=== PATIENT | female | born 1980 | race African-American/Black ===

== ENCOUNTER 2020-05-09 09:49 | Outpatient (CLI) | payer BC, SELFPAY ==
--- NOTE | 2020-05-09 09:52 | ECG_ITS ---
Measurements Intervals [place] Rate: 86 P: 48 DE: 161 QRS: 43 QRSD: 96 T: 43 QT: 355 QTc: 426 Interpretive Statements SINUS RHYTHM BORDERLINE R WAVE PROGRESSION, ANTERIOR LEADS BASELINE ARTIFACT- I, II, III, AVR, AVL, AVF BORDERLINE ECG Electronically Signed On 05-09-2020 10:52:36 FLEET ASSISTANT by Riki Jackson D.O.
[2020-05-09 10:59] LABS: Anion Gap 7 mmol/L (8-16); Blood Urea Nitrogen 13 mg/dL (7-17); Carbon Dioxide 29 mmol/L (22-30); Chloride 103 mmol/L (98-107); Estimated Glomerular Filt Rate > 60; Glucose 149 mg/dL (65-105); Potassium 4.1 mmol/L (3.4-5.0); Sodium 139 mmol/L (137-145)
== END 2020-05-09 09:50 | disposition home or self-care (01) ==
PROVIDERS: Anesthesiology; PCP Obstetrics & Gynecology; Visit Provider Surgery
DX: E11.9 Type 2 diabetes mellitus without complications (principal); Z01.818 Encounter for other preprocedural examination; R94.31 Abnormal electrocardiogram [ECG] [EKG]
CPT/HCPCS: 36415; 80048; 93005

== ENCOUNTER 2020-05-14 01:03 | Outpatient (CLI) | payer BC, SELFPAY ==
[2020-05-14 19:31] LABS: SARS-CoV-2 RNA PCR Negative
== END 2020-05-14 01:04 | disposition home or self-care (01) ==
LOC: ANHCOVIDDT 01:03
PROVIDERS: PCP Obstetrics & Gynecology; Visit Provider Surgery
DX: Z01.818 Encounter for other preprocedural examination (principal); Z20.828 Contact with and (suspected) exposure to other viral communicable diseases
CPT/HCPCS: 87635; C9803; U0003

== ENCOUNTER 2020-05-16 00:55 | Day surgery (SDC) | payer BC, SELFPAY ==
[2020-05-06 15:02] VITALS: BMI 35.4
--- NOTE | ~2020-05-16 | XR_ITS ---
EXAMINATION: XR fl guide central line place EXAM DATE: 05/16/2020 14:48 INDICATION: Barb catheter insertion. TECHNIQUE: Fluoroscopy used during XR fl guide central line place performed by Dr. Ramana Walls MD. The DAP for this procedure was 1.3 mGym2. FINDINGS: Single frontal image demonstrates left IJ approach 2 portacatheter insertion, tip overlyin g cavoatrial junction, expected location. Correlate with procedure note. IMPRESSION: Fluoroscopy used during XR fl guide central line place. Reviewed, dictated and finalized at location [facility]. L MILL OPERATOR
--- NOTE | ~2020-05-16 | XR_ITS ---
XR chest port-a-cath/central DATE: 05/16/2020 14:48 INDICATION: Port-A-Cath insertion TECHNIQUE: Portable AP chest on 05/16/2020 at 1448 hours COMPARISON: None FINDINGS: Left Port-A-Cath apparatus is noted with distal catheter tip overlying the superior vena ca va. There is no evidence of pneumothorax. No pulmonary consolidation. No pleural effusion. Normal heart size. No hilar or mediastinal enlargement. IMPRESSION: Left Port-A-Cath catheter placement in superior vena cava; no pneumothorax Reviewed, dictated and finalized at [facility]. Reviewed, dictated and finalized at location [facility]. EL DIPPER IMPRESSION: Left Port-A-Cath catheter placement in superior vena cava; no pneum othorax
--- NOTE | 2020-05-16 08:08 | P.PNAN_ITS ---
Anes - Initial Pre Proc Eval Procedure: Operation Date: 05/16/20 11:30 Proposed Procedures p Insertion Barb Cath - Ramana Walls MD Date/Time: 05/16/20 08:08 Surgeon: Ramana Walls MD Pre Op Diagnosis: ductal CA right breast Patient Data Age: 39 Gender: F Height: 1.75 m Weight: 108.63 kg Allergies Allergy/AdvReac Type Severity Reaction Status Date / Time shellfish derived Allergy Severe Swelling Verified 05/06/20 14:37 of Lip/Tongue/Throat Home Medications Medication Instructions Recorded Confirmed Type albuterol sulfate 90 mcg/actuation 1 inh INHALATION Q4-6H PRN 04/27/20 05/06/20 History breath activated powder inhaler,sensor metformin 1,000 mg tablet 1,000 mg PO BID 04/27/20 05/06/20 History Patient hx anesthesia problems: none Family hx anesthesia problems: none PMFSH Past Medical History Medical History (Updated 05/16/20 @ 08:08 by Dean Kaplan MD) Asthma BMI 33.0-33.9,adult Diabetes Invasive ductal carcinoma of right breast in female Surgical History Surgical History History of Family History Family History Father COPD (chronic obstructive pulmonary disease) Mother Asthma Diabetes mellitus Hypertension Sibling Asthma Grandparent Breast cancer Social History Social History Smoking status: Never smoker Alcohol intake: current Drinks per week: 2 Substance use: never Living arrangements: with family Additional occupation/education comments: [employer] Gender identity (if verbalized by the patient): Female Spiritual care concerns: No Anes - Eval Final PreProcedure Day of Procedure 05/16/20 08:08 Patient weight: obese Heart: regular rate and rhythm Lungs: clear to auscultation and normal air movement Airway: Mallampati scale class II Neurological: alert and oriented Last oral intake: >/= 8 hours ASA classification: III Emergent: no Anesthetic plan: proceed Anesthesia type and monitoring: general LMA Informed Consent: The patient's anesthetic plan and its attendant risks and benefits were discussed with the patient/family/POA. Questions were solicited a nd answers provided to the satisfaction of the patient/family/POA.
[2020-05-16 09:55] LABS: Glucose Point of Care 131 (65-105)
[2020-05-16 10:14] VITALS: BP 137/90; PULSE 91; RESP 14; TEMP 36.8; O2SAT 100
[2020-05-16] MEDS: LACTATED RINGERS 1,000 ML 30 ML IV CONT ×2 (10:23→14:34)
--- NOTE | 2020-05-16 12:46 | WPDHPUPDATE1 ---
History and Physical Update Update Date/Time: 05/16/20 12:46 History and Physical has been reviewed, including an updated exam of the patient. There are NO changes in the patient's condition. Risks, benefits, and alternatives have been discussed and questions answered. Patient agrees to proceed with procedure.
--- NOTE | 2020-05-16 12:49 | WPDHPUPDATE1 ---
History and Physical Update Update Date/Time: 05/16/20 12:49 History and Physical has been reviewed, including an updated exam of the patient. There are changes in the patient's condition. After I saw the patient in the office in the receptors on her core biopsy of the right breast tumor came back. Please revealed a triple negative cancer. Because of this she should have adjuvant chemotherapy preop. Therefore we have agreed to cancel the lumpectomy and sentinel lymph node biopsy for now and instead place a port which can be use for her preoperative chemotherapy. She will be seen the medical oncologist in 2 days. Risks, benefits, and alternatives of placement of a left-sided Port-A-Cath have been described and have been discussed and questions answered. Patient agrees to proceed with procedure .
[2020-05-16] MEDS: LIDO 1%/EPINEPHRINE 1:100,000 50 ML VIAL INFILTRATE (13:36)
[2020-05-16] MEDS: HEPARIN SODIUM 5,000 UNITS/ML VIAL 5000 UNITS IRRIGATION (13:37)
[2020-05-16] MEDS: ceFAZolin SODIUM 1 GM VIAL 2 GM IV PUSH (13:38)
[2020-05-16 14:34] VITALS: BP 122/72; PULSE 102; RESP 14; O2SAT 100
[2020-05-16 14:41] LABS: Glucose Point of Care 124 (65-105)
--- NOTE | 2020-05-16 14:45 | SUR.PHASEII ---
1440 PORTABLE CHEST XRAY TAKEN- DR SCOTT REVIEWED IMAGE.
--- NOTE | 2020-05-16 14:48 | PM.PROC ---
Procedure Note - Detailed Date of procedure: 05/16/20 Pre-op diagnosis: ductal CA right breast triple negative right breast cancer Post-op diagnosis: same Procedure performed: placement of Port-A-Cath Description of procedure: Patient was seen and marked in the pre-op area prior to coming to the OR. Patient was brought to the operating room. I decided to try to place the port on the left since her breast cancer is on the right. She was placed supine on the operating table and general IV sedation was induced. The nurse coater hand provided oxygen and IV sedation. Patient's head was carefully turned to the left side while in the supine position and the patient's entire neck and anterior chest on both sides was prepped and draped in the usual sterile fashion. Following this the appropriate time-out was completed confirming procedure and patient. We confirmed that all the needed equipment was present in the room. Following this the ultrasound probe was draped into the field and using the probe we carefully identified the carotid artery and jugular vein on the right neck. I marked the skin directly over the Rt. internal jugular vein. Following this, using the continuous ultrasound guidance, a Cook needle was placed through the skin into this vein. Patient has somewhat of a thick neck and her head was turned far to the right. I had some trouble keeping the needle in the vein with her sonorous breathing and the guidewire would not pass after trying several times. Therefore I stopped trying at that site. We cleansed the neck turned her head slightly toward me and tried a little bit higher on the neck with a new insertion site after injecting local anesthetic in the area. I did take 1 still image of the ultrasound showing the vascular anatomy of the left neck. After selecting a new site slightly higher than original I again inserted the needle into the jugular vein and was then was able to draw back good dark blood. Once this was completed a guidewire using a J-tip was advanced through the needle and then the needle and the guidewire cover were withdrawn. C-arm fluoroscopy was used to confirm that the guidewire was nicely in the venous system. Once this was confirmed with the C - arm I preceded on by making the pocket for the port on the patient's anterior right chest approximately 3 centimeters below the clavicle overlying the chest wall. Local anesthetic was infiltrated into the skin where there was a transverse incision marked out. Incision was made and we made a pocket inferior to the incision with just a little dissection superior. The low-profile port was tried in the pocket and seemed to fit well. Following this the catheter which had been placed on a tunneling device was tunneled from the port site on the anterior right chest up to the right neck where a small incision had been made with an #11 blade knife. Then the catheter was pulled through so that we would have 18 centimeters to put into the central venous system once the dilation took place. Following this we placed the dilator and sheath over the guidewire in the jugular vein and carefully dilated the tract into the central venous system. The guidewire and dilator were then removed, carefully covering the end of the sheath to prevent air embolus. The end of the catheter which had been cut off straight across and the tip checked was then inserted into the sheath and into the neck. I then carefully pulled the 2 arms of the tear-away sheath away as the plant attendant or assistant operator held the catheter in position with a DeBakey forceps. Following this we checked the position of the catheter with C-arm fluoroscopy confirming that the tip seemed to be in the distal superior vena cava near the junction with the right atrium. I felt that it was in good position and so the rest of the catheter was pulled down toward the feet into the port site. We then measured to the appropriate position to cut the catheter to attach it to t
[2020-05-16 15:00] VITALS: BP 127/91; PULSE 74; RESP 14
[2020-05-16 15:15] VITALS: BP 104/70; PULSE 87; RESP 16
== END 2020-05-16 15:30 | disposition home or self-care (01) ==
PROVIDERS: PCP Obstetrics & Gynecology; Visit Provider Surgery
PROC: (CPT 36561; principal; 2020-05-16 10:30)
DX: C50.911 Malignant neoplasm of unspecified site of right female breast (principal); J45.909 Unspecified asthma, uncomplicated; E11.9 Type 2 diabetes mellitus without complications; Z79.84 Long term (current) use of oral hypoglycemic drugs; E66.9 Obesity, unspecified; Z68.35 Body mass index [BMI] 35.0-35.9, adult
CPT/HCPCS: 36561; 76937; 77001; C1788; J0690; J1644; J2250; J2704; J3010; J7030; J7120

== ENCOUNTER 2020-05-26 08:50 | Outpatient (CLI) | payer BC, SELFPAY ==
--- NOTE | 2020-05-26 | ECHO_ITS ---
Patient Info Name: Sheila Amado Age: 39 years : 1980 Gender: Female Ht: 69 in Wt: 250 lbs BSA: 2.40 m2 HR: 70 bpm BP: 130 / 103 mmHg Technical Quality: Good Exam Date: 05/26/2020 9:44 AM Exam Location: [facility] Patient Status: Outpatient Admit Date: 05/26/2020 Staff Ordering Physician: Diego, Benson Bean MD Privacy Officer: Sylvia Dennison RDCS Attending Provider: Diego, Benson Bean MD Referring Physician: Diego SOLANO; Exam Type: CA echo doppler color flow Study Info Indications c50.411 - breast cancer Complete two-dimensional, color flow and Doppler transthoracic echocardiogram is performed. Strain analysis performed. Summary 1. Complete two-dimensional, color flow and Doppler transthoracic echocardiogram is performed. 2. Left ventricular systolic function is normal, estimated at 60-65%. 3. The left ventricular diastolic function is normal. 4. There is mild mitral valve regurgitation. 5. There is mild tricuspid valve regurgitation. 6. No pulmonary hypertension, estimated pulmonary arterial systolic pressure is 27 mmHg. 7. There is trace pulmonic regurgitation. Left Ventricle Left ventricular chamber dimension is normal. Left ventricular systolic function is normal, estimated at 60-65%. There is no increased left ventricular wall thickness. Left ventricular septal wall motion is normal. The left ventricular diastolic function is normal. Right Ventricle Right ventricular chamber dimension is normal. Right ventricular systolic function is normal. Left Atria Left atrial chamber dimension is normal. Right Atria Right atrial chamber dimension is normal. Atrial Septum Intact interatrial septum visualized by color flow imaging. Aortic Valve The aortic valve is trileaflet. There is no aortic valve sclerosis. There is no aortic valve stenosis. There is no aortic valve regurgitation. Pulmonic Valve The pulmonic valve is not well visualized. There is no pulmonic valve stenosis. There is trace pulmonic regurgitation. Mitral Valve The mitral valve has normal leaflets. There is no mitral valve stenosis. There is mild mitral valve regurgitation. Tricuspid Valve The tricuspid valve leaflets are normal. There is no significant tricuspid valve stenosis. There is mild tricuspid valve regurgitation. No pulmonary hypertension, estimated pulmonary arterial systolic pressure is 27 mmHg. Pericardium/Pleural The pericardium appears normal. There is no pericardial effusion. Inferior Vena Cava Normal inferior vena cava with >50% collapse upon inspiration consistent with normal right atrial pressure, 5 mmHg. Aorta The aortic root size at the sinus of Valsalva is normal. The prox ascending aorta size is normal. Left Ventricular Outflow Tract Name Value Normal LVOT 2D LVOT Diameter 2.1 cm LVOT Doppler LVOT Peak Gradient 4 mmHg LVOT Mean Gradient 3 mmHg LVOT VTI 22 cm LVOT VTI/AV VTI Ratio 0.8 LVOT Stroke Vo
== END 2020-05-26 08:51 | disposition home or self-care (01) ==
LOC: ANHCARD 08:55
PROVIDERS: PCP Obstetrics & Gynecology; Visit Provider Internal Medicine
DX: C50.411 Malignant neoplasm of upper-outer quadrant of right female breast (principal); Z17.0 Estrogen receptor positive status [ER+]
CPT/HCPCS: 93306

== ENCOUNTER → 2020-11-11 00:49 | Outpatient (CLI) | payer BC, SELFPAY ==
[2020-11-12 16:57] LABS: SARS-CoV-2 RNA PCR Negative
== END ==
PROVIDERS: PCP Obstetrics & Gynecology; Visit Provider Surgery
DX: Z01.812 Encounter for preprocedural laboratory examination (principal); Z20.822 Contact with and (suspected) exposure to COVID-19
CPT/HCPCS: C9803; U0003; U0005

== ENCOUNTER 2020-11-11 08:20 | Outpatient (CLI) | payer BC, SELFPAY ==
[2020-11-11 10:19] LABS: Anion Gap 9 mmol/L (8-16); Blood Urea Nitrogen 15 mg/dL (7-17); Calcium 9.4 mg/dL (8.4-10.2); Carbon Dioxide 25 mmol/L (22-30); Chloride 105 mmol/L (98-107); Estimated Glomerular Filt Rate > 60; Glucose 128 mg/dL (65-105); Sodium 139 mmol/L (137-145)
== END 2020-11-11 08:21 | disposition home or self-care (01) ==
LOC: ANHSURGERY 08:23
PROVIDERS: Anesthesiology; PCP Obstetrics & Gynecology; Visit Provider Surgery
DX: E11.9 Type 2 diabetes mellitus without complications (principal); C50.911 Malignant neoplasm of unspecified site of right female breast; Z01.818 Encounter for other preprocedural examination
CPT/HCPCS: 36415; 80048; 86850; 86900; 86901; C9803; U0003; U0005

== ENCOUNTER 2020-11-14 00:40 | Day surgery (SDC) | payer BC, SELFPAY ==
[2020-11-14 09:10] VITALS: BMI 38.5
[2020-11-14] MEDS: LACTATED RINGERS 1,000 ML 30 ML IV CONT (09:49)
[2020-11-14 09:50] VITALS: BP 137/88; PULSE 97; RESP 18; TEMP 36.8; O2SAT 98
--- NOTE | 2020-11-14 09:50 | SUR.PREOP ---
Hayley in nuclear medicine notified that patient is ready
[2020-11-14 10:22] LABS: Glucose Point of Care 131 mg/dl (65-105)
--- NOTE | 2020-11-14 10:47 | P.PNAN_ITS ---
Anes - Initial Pre Proc Eval Procedure: Operation Date: 11/14/20 12:00 Proposed Procedures p Right Simple Mastectomy with [place] Lymph Node Biopsy, with Frozen Section, Possible Right Axillary Dissection - Ramana Walls MD Date/Time: 11/14/20 10:47 Surgeon: Ramana Walls MD Pre Op Diagnosis: Breast Cancer Patient Data Age: 40 Gender: F Height: Weight: 118.3 kg Last Vital Signs Temp 36.8 C 11/14/20 09:50 Pulse 97 11/14/20 09:50 Resp 18 11/14/20 09:50 BP 137/88 11/14/20 09:50 Pulse Ox 98 11/14/20 09:50 Allergies Allergy/AdvReac Type Severity Reaction Status Date / Time shellfish derived Allergy Severe Swelling Verified 11/14/20 09:05 of Lip/Tongue/Throat Home Medications Medication Instructions Recorded Confirmed Type albuterol sulfate 90 mcg/actuation 1 inh INHALATION Q4-6H PRN 04/27/20 11/08/20 History breath activated powder inhaler,sensor metformin 1,000 mg tablet 1,000 mg PO BID 04/27/20 11/08/20 History Laboratory Tests 11/14/20 10:19 POC Capillary Glucose 131 mg/dl H mg/dl (65-105) Patient hx anesthesia problems: none Family hx anesthesia problems: none PMFSH Past Medical History Medical History Asthma BMI 33.0-33.9,adult Diabetes Invasive ductal carcinoma of right breast in female Surgical History Surgical History History of Family History Family History Father COPD (chronic obstructive pulmonary disease) Mother Asthma Diabetes mellitus Hypertension Sibling Asthma Grandparent Breast cancer Maternal grandmother and maternal great-grandmother Social History Social History Smoking status: Never smoker Alcohol intake: former Drinks per week: 2 Substance use: never Living arrangements: with family Additional occupation/education comments: [employer] Gender identity (if verbalized by the patient): Female Spiritual care concerns: No Anes - Eval Final PreProcedure Day of Procedure 11/14/20 10:47 Patient weight: obese Heart: regular rate and rhythm Lungs: clear to auscultation Airway: Mallampati scale class II Neurological: alert and oriented Last oral intake: >/= 8 hours ASA classification: III Emergent: no Anesthetic plan: proceed Anesthesia type and monitoring: general ETT and standard monitoring Informed Consent: The patient's anesthetic plan and its attendant risks and benefits were discussed with the patient/family/POA. Questions were solicited and answers provided to the satisfaction of the patient/family/POA.
--- NOTE | 2020-11-14 11:47 | SUR.PREOP ---
patient has decided to reschedule surgery. message left with Dr. Walls's office. calender runner notified.
== END 2020-11-14 12:50 | disposition home or self-care (01) ==
PROVIDERS: PCP Obstetrics & Gynecology; Visit Provider Surgery
DX: C50.911 Malignant neoplasm of unspecified site of right female breast (principal); Z53.20 Procedure and treatment not carried out because of patient's decision for unspecified reasons; E11.9 Type 2 diabetes mellitus without complications
CPT/HCPCS: 82948; 99213; G0463; J1170; J2250; J3010; J7120

== ENCOUNTER → 2020-11-29 01:03 | Outpatient (CLI) | payer BC, SELFPAY ==
[2020-11-29 17:38] LABS: SARS-CoV-2 RNA PCR Negative
== END ==
PROVIDERS: PCP Obstetrics & Gynecology; Visit Provider Surgery
DX: Z01.812 Encounter for preprocedural laboratory examination (principal); Z20.822 Contact with and (suspected) exposure to COVID-19
CPT/HCPCS: C9803; U0003; U0005

== ENCOUNTER 2020-12-02 01:27 | Day surgery (SDC) | payer BC, SELFPAY ==
[2020-11-30 11:16] VITALS: BMI 37.4
[2020-12-02] VITALS (11 sets, daily range): BP systolic 115–127; BP diastolic 68–86; PULSE 82–98; RESP 14–20; TEMP 36.5–36.7; O2SAT 98–100
--- NOTE | ~2020-12-02 | NM_ITS ---
EXAMINATION: NM sentinel node inject only INDICATION: Right breast cancer TECHNIQUE: 1.069 mCi Tc 99m Lymphoseek were injected in 4 aliquots in the upper outer quadrant of the breast near the areola. No images were obtained. IMPRESSION: 1. Status post right breast sentinel lymph node radiopharmaceutical injection. Reviewed, dictated and finalized at location A.
--- NOTE | ~2020-12-02 | MM_ITS ---
EXAMINATION: MM needle loc RT, MM surgical specimen RT DATE: 12/02/2020 08:45 (accession [id number]), 12/02/2020 11:09 (accession [id number]) INDICATION: Right breast cancer TECHNIQUE: The procedure for a mammography-guided needle localization was discussed with the patient. Risks and benefits were detailed including risks of bleeding and infection. The patient verbalized u nderstanding and agreed to proceed. A time out was performed to verify the patient's name, date of , and site of procedure. The nabor ent was placed in craniocaudal compression, and the skin overlying the right breast was prepared in usual fashion. The skin and subcutaneous soft tissues were infiltrated with 1% lidocaine for local an esthesia. Utilizing mammography guidance, a needle was advanced into the right breast. Two confirmato ry films were obtained. The patient tolerated procedure without immediate complication. A specimen radiograph was performed. FINDINGS: Two view confirmatory films of the right breast demonstrate a needle with tip adjacent to b iopsy marker. The biopsy marker and wire are contained within the surgical specimen. IMPRESSION: 1. Successful mammography-guided right breast needle localization. Reviewed, dictated and finalized at location A. IMPRESSION: 1. Successful mammography-guided right breast needle localization.
--- NOTE | 2020-12-02 08:20 | PM.HPGS ---
History of Present Illness History of Present Illness Consent: Risks, benefits, and alternatives of right sentinel lymph node biopsy with right breast needle localization and lumpectomy possible right axillary dissection have been discussed and questions answered. Patient agrees to proceed with procedure. Chief complaint: right breast CA Narrative: Sheila Amado is a 40 year old female Sheila returns to the office to discuss her upcoming right breast lumpectomy with sentinel lymph node biopsy with frozen section possible right axillary dissection vs Rt. simple mastectomy scheduled for 12/02/2020. Since her last office visit she is doing well. she has been seen a medical oncologist in [place]. She has now completed a course of adjuvant chemotherapy after having a port placed on the left side in the past. She finished her last chemotherapy treatment [address] Cortez. She believes that the previously palpable Rt. breast mass no longer palpable. She has not had the COVID 19 vaccine. Review of Systems Constitutional: Constitutional: Reports no additional constitutional complaints, Reports fatigue and Denies malaise Eyes: Eyes: Denies change in vision and Denies loss of vision ENT: Reports Normal hearing present, Denies change in voice, Denies dizziness, Denies hoarseness and Denies sore throat Cardiovascular: Cardiovascular: Denies chest pain, Denies leg edema and Denies dyspnea Respiratory: Respiratory: Denies cough, Denies dyspnea and Denies wheezing Gastrointestinal: Gastrointestinal: Denies hematochezia, Denies change in bowel habits and Denies heartburn Genitourinary: Genitourinary: Denies urinary frequency and Denies urinary incontinence Integumentary/Breasts: Comments: Recently completed adjuvant chemotherapy for the right breast cancer without too much side effects. Currently denies any specific nausea air loss or other problems. Neurologic: Reports Normal hearing present, Denies confusion, Denies dizziness, Denies loss of vision, Denies memory loss and Denies seizure-like activity Psychiatric: Psychiatric: Denies confusion, Denies depression and Denies memory loss Endocrine: Endocrine: Denies cold intolerance and Reports fatigue Hematologic/Lymphatic: Hematologic/Lymphatic: Denies easy bleeding and Denies easy bruising Allergic/Immunologic: Allergic/Immunologic: Denies wheezing PMFSH Past Medical History Medical History Asthma BMI 33.0-33.9,adult Diabetes Invasive ductal carcinoma of right breast in female Surgical History Surgical History History of Family History Family History Father COPD (chronic obstructive pulmonary disease) Mother Asthma Diabetes mellitus Hypertension Sibling Asthma Grandparent Breast cancer Maternal grandmother and maternal great-grandmother Social History Social History Smoking status: Never smoker Alcohol intake: current Drinks per week: 1 Substance use: never Living arrangements: alone Additional occupation/education comments: [employer] Gender identity (if verbalized by the patient): Female Spiritual care concerns: No Meds Home Medications and Allergies Home Medications Medication Instructions Recorded Confirmed Type albuterol sulfate 90 mcg/actuation 1 inh INHALATION Q4-6H PRN 04/27/20 12/02/20 History breath activated powder inhaler,sensor metformin 1,000 mg tablet 1,000 mg PO BID 04/27/20 12/02/20 History Allergies Allergy/AdvReac Type Severity Reaction Status Date / Time shellfish derived Allergy Severe Swelling Verified 11/14/20 09:05 of Lip/Tongue/Throat Exam Const: General: cooperative, healthy appearing, no acute distress, well developed and al
[2020-12-02] MEDS: LACTATED RINGERS 1,000 ML 30 ML IV CONT ×2 (08:40→11:53)
[2020-12-02 08:48] LABS: Glucose Point of Care 147 mg/dl (65-105)
--- NOTE | 2020-12-02 09:01 | WPDHPUPDATE1 ---
History and Physical Update Update Date/Time: 12/02/20 09:01 History and Physical has been reviewed, including an updated exam of the patient. There are NO changes in the patient's condition. Risks, benefits, and alternatives have been discussed and questions answered. Patient agrees to proceed with procedure.
--- NOTE | 2020-12-02 09:08 | WPDANESEPPF ---
Anes - Initial Pre Proc Eval Procedure: Operation Date: 12/02/20 09:30 Proposed Procedures p Right Breast Lumpectomy with Right Axillary [place] Lymph Node Biopsy and Injection, - Ramana Walls MD s Ultrasound and/or Mammogram Guided Needle Localization Right Breast - Ramana Walls MD Date/Time: 12/02/20 09:08 Surgeon: Ramana Walls MD Pre Op Diagnosis: right breast CA Patient Data Age: 40 Gender: F Height: 1.75 m Weight: 115 kg Allergies Allergy/AdvReac Type Severity Reaction Status Date / Time shellfish derived Allergy Severe Swelling Verified 11/14/20 09:05 of Lip/Tongue/Throat Home Medications Medication Instructions Recorded Confirmed Type albuterol sulfate 90 mcg/actuation 1 inh INHALATION Q4-6H PRN 04/27/20 12/02/20 History breath activated powder inhaler,sensor metformin 1,000 mg tablet 1,000 mg PO BID 04/27/20 12/02/20 History Laboratory Tests 12/02/20 08:46 POC Capillary Glucose 147 mg/dl H mg/dl (65-105) Patient hx anesthesia problems: none Family hx anesthesia problems: none [facility] Past Medical History Medical History Asthma (Unknown) BMI 33.0-33.9,adult Diabetes (Unknown) Invasive ductal carcinoma of right breast in female Surgical History Surgical History History of Family History Family History Father COPD (chronic obstructive pulmonary disease) Mother Asthma Diabetes mellitus Hypertension Sibling Asthma Grandparent Breast cancer Maternal grandmother and maternal great-grandmother Social History Social History Smoking status: Never smoker Alcohol intake: current Drinks per week: 1 Substance use: never Living arrangements: alone Additional occupation/education comments: [employer] Gender identity (if verbalized by the patient): Female Spiritual care concerns: No Anes - Eval Final PreProcedure Day of Procedure 12/02/20 09:08 Patient weight: obese Heart: regular rate and rhythm Lungs: clear to auscultation Airway: Mallampati scale class II Neurological: alert and oriented Last oral intake: >/= 8 hours ASA classification: III Emergent: no Anesthetic plan: proceed Anesthesia type and monitoring: general LMA and standard monitoring Informed Consent: The patient's anesthetic plan and its attendant risks and benefits were discussed with the patient/family/POA. Questions were solicited and answers provided to the satisfaction of the patient/family/POA.
[2020-12-02] MEDS: ceFAZolin 2 GM/D5W 50 ML 2 GM/50 ML BAG IVPB (09:27)
--- NOTE | 2020-12-02 09:41 | SUR.PREOP ---
0900-PT HAS WIG AND WANTS TO LEAVE IT ON TO SURGERY, DR. SCOTT SPOKE WITH PATIENT AND WILL DOUBLE BOUFFANT PT'S HEAD/WIG.
--- NOTE | 2020-12-02 09:48 | SUR.PREOP ---
CORRECTION TO CHARTING-ACTUAL TIME BLOOD GLUCOSE DONE 0845 NOT 0945.
[2020-12-02] MEDS: BUPIVACAINE/EPINEPHRINE 0.25% 10 ML VIAL 30 ML INFILTRATE (10:02)
[2020-12-02] MEDS: ISOSULFAN BLUE 1% INJ 5 ML VIAL SUB-Q (10:16)
--- NOTE | 2020-12-02 12:21 | W.PM.PROC2 ---
Procedure Note - Detailed Date of Procedure 12/02/20 Pre-op Diagnosis right breast CA Post-op Diagnosis same Procedure Performed 1. Grimsley lymph node biopsy times 2 2. Needle localized right breast lumpectomy. 3. Excision of non sentinel lymph node x1 right axilla. 4. Excision of superficial fat right axilla, ( suspected lipoma). Surgeon Ramana Walls MD [employer] [place], OR therapeutic assistant Anesthesia general (via LMA) Indications this patient is a pleasant 40-year-old black female who originally presented to the office with a enlarging mass in the upper central right breast. Core biopsy came back showing triple negative breast cancer. She subsequently underwent neoadjuvant chemotherapy after having a poor placed on the left. Recently she completed her adjuvant chemotherapy and now presents for a lumpectomy with sentinel lymph node biopsy. Findings Right axilla: a superficial apparent lipoma and to hot sentinel lymph nodes that also stained blue with injectable dye while excising the 2nd 1 an obvious separate non sentinel lymph node was identified and excised since it was right next to the hottest sentinel lymph node. Right breast: Unremarkable breast tissue excised as we did the lumpectomy. During the excison I did get down to pectoralis fascia in 1 area deep to the specimen and on the medial side. Description of Procedure The patient was seen preoperatively in the holding area, and I marked the patient on the operative side. She was brought to the operating room and anesthesia delivered. She was prepped and draped in the usual sterile fashion. A timeout was performed confirming patient and site of surgery. An axillary incision was made on the right, and the subcutaneous tissues were dissected with electrocautery, after 1st making incision in the center part of this right axillary incision there appeared to be a approximately 2.5 cm oval shape lipoma which was excised and separately sent for permanent pathology. Then the clavipectoral fascia was incised with electrocautery. Using the Navigator sentinel lymph node probe, the sentinel lymph node was identified and the count in vivo was 929. Then with a ex vivo 10- second count of 7028 was recorded. A second sentinel lymph node was identified with an in vivo count of 11,200. Then with a ex vivo 10- second count of 12,124 was recorded. The count in the axilla after removing this lymph node was between 90 and 140, for background noise. The sentinel lymph nodes were sent fresh for pathologic evaluation. There were also 1 non- sentinel lymph nodes identified visually or by palpation and these were sent for permanant sections in formalin to pathology. The wound was irrigated, hemostased, and closed with 3-0 Vicryl and 4-0 Monocryl. That wound was draped away with a sterile towel and the operative breast was examined. The localizing wire was noted to be entering the breast in the upper central breast. A curvilinear incision was made along the wire and the tissue surrounding the wire was removed widely with electrocautery. The specimen was oriented with a long suture lateral and short suture superior and sent for specimen mammogram. I DID send the breast tissue for fresh tissue exam immediate report requested at pathology. Mammography called back stating that the specimen was adequate with the clip and wire within the specimen and apparent good margins. The pathologist called back and stated that the sentinel lymph nodes showed no signs of cancer cells on touch prep and initial fresh evaluation [ the pathologist called back and stated that fresh exam of the lumpectomy specimen revealed the area of the tumor in the central part of the specimen and the closest margin to tumor would be about 1.5 cm. The Breast wound was irrigated, hemostased, and closed in 2 layers with 3-0 undyed Vicryl and 4-0 Monocryl. Surgical glue was applied to both wounds. All counts were correct at the end of the case.
--- NOTE | 2020-12-02 12:45 | SUR.PHASEI ---
1245- ice bag to rt axilla breast area.
[2020-12-02] MEDS: ONDANSETRON INJ 4 MG/2 ML VIAL IV PUSH (13:26)
[2020-12-02] MEDS: diphenhydrAMINE HCl INJ 50 MG/ML VIAL 25 MG IV PUSH (13:58)
== END 2020-12-02 14:22 | disposition home or self-care (01) ==
PROVIDERS: PCP Obstetrics & Gynecology; Visit Provider Surgery
PROC: (CPT 19301; principal; 2020-12-02 09:30)
PROC: (CPT 19301; 2020-12-02 09:30)
DX: C50.911 Malignant neoplasm of unspecified site of right female breast (principal); C77.3 Secondary and unspecified malignant neoplasm of axilla and upper limb lymph nodes; E11.9 Type 2 diabetes mellitus without complications; J45.909 Unspecified asthma, uncomplicated; Z79.51 Long term (current) use of inhaled steroids; Z79.84 Long term (current) use of oral hypoglycemic drugs; E66.9 Obesity, unspecified; Z68.37 Body mass index [BMI] 37.0-37.9, adult
CPT/HCPCS: 19301; 38525; 19281; 38792; 76098; 82948; 88304; 88305; 88307; 88342; A9270; A9520; C1713; C1769; J0690; J1200; J2250; J2270; J2405; J2704; J7120

== ENCOUNTER 2021-05-31 14:16 | Outpatient (CLI) | payer BC, SELFPAY ==
--- NOTE | ~2021-05-31 | MM_ITS ---
EXAMINATION: MM diagnostic sharan BI w faisal HISTORY: History of right breast cancer status post recent lumpectomy TECHNIQUE: Additional 3-D tomosynthesis images of the breasts were performed and synthetic 2-D images were generated. CAD analysis was submitted and interpreted. COMPARISON: 12/02/2020 BREAST PARENCHYMAL COMPOSITION: Breast composed of scattered areas of fibroglandular density. FINDINGS: There is architectural distortion and asymmetry in the upper central right breast in the ar ea of previous lumpectomy. The left breast is stable without evidence for malignancy. IMPRESSION: 1. Probable postsurgical change upper central right breast. No evidence for malignancy in the left br east. 2. Recommend 6 month follow-up diagnostic right mammogram BI-RADS category 3, probably benign findings. Reviewed, dictated and finalized at location A. PING CAR PORTER IMPRESSION: 1. Probable postsurgical change upper central right breast. No evidence for mal ignancy in the left breast. 2. Recommend 6 month follow-up diagnostic right mammogram BI-RADS category 3, probably benign findings.
== END 2021-05-31 14:17 | disposition home or self-care (01) ==
LOC: ANHIMG 14:17
PROVIDERS: PCP Obstetrics & Gynecology; Visit Provider Surgery
DX: C50.911 Malignant neoplasm of unspecified site of right female breast (principal)
CPT/HCPCS: 77062; 77066; G0279

== ENCOUNTER → 2021-08-01 11:35 | Outpatient (CLI) | payer OTHER, MEDICAID, SELFPAY ==
[2021-08-01 12:54] LABS: SARS-CoV-2 RNA PCR Negative
== END ==
PROVIDERS: PCP Obstetrics & Gynecology; Visit Provider Surgery
DX: Z01.812 Encounter for preprocedural laboratory examination (principal); Z20.822 Contact with and (suspected) exposure to COVID-19
CPT/HCPCS: C9803; U0003; U0005

== ENCOUNTER 2021-08-04 00:21 | Day surgery (SDC) | payer OTHER, MEDICAID, SELFPAY ==
[2021-07-11 14:20] VITALS: BMI 33.4
--- NOTE | 2021-07-11 14:28 | PC.NURSE ---
Report to the Outpatient Waiting Room, entrance under the green pavilion located off [facility], at time 1230 on date 07/17/21. OR Time: 1330. - You and your visitor will be asked a series of questions to screen for COVID 19 for your protection. - A mask is required within the hospital. One visitor will be allowed to accompany the patient into the hospital. Patients visitor will be instructed to remain with patient at all times or leave the building. We will allow the visitor to come back to the postoperative area when patient is ready. Preoperative COVID Testing Requirements: COVID TEST 07/14 AT 0915 No COVID Test needed if: (proof is required; if not received patient will have Rapid Test prior to entry) - Patient has received COVID Vaccine at least 14 days prior to procedure date or - Patient has positive COVID test result within last 90 days of surgery date. COVID Test needed if above criteria is not met If not COVID vaccinated a COVID test must be conducted within 72 hours of surgery and patient is asked to isolate self from time of testing until procedure. You will go to the [facility] for your COVID testing. The [facility] site is located at the corner of [address] [facility]. You will only be called if COVID results are positive and your surgeon may reschedule your elective surgery date. Patients may have LIGHT MEAL Take the following medications with a SIP of water the morning of surgery: RX'D Medications to discontinue per physician: N/A Date to take last dose: N/A Please no make-up, nail tuvaluan, hairspray, perfume, deodorant, or body powder the day of surgery. No jewelry (including any body piercings) or valuables the day of surgery, leave them at home. Please take a shower or bath the night before, or the morning of, surgery with an antibacterial soap. Wear comfortable, loose fitting clothing. - Jewelry must be removed prior to entering the operating room. Rings and piercings that are not removed may be cut off. - The hospital will not accept responsibility for valuables. - Please leave all valuables, including medications, at home the day of surgery. If you are going home after surgery, YOU MAY DRIVE YOURSELF HOME. - NO public transportation without another adult. - We recommend that an adult stay with you for 24 hours following discharge. - We also recommend that you do not drive, make important decision, drink alcoholic beverages, or take any drugs that were not prescribed by your health care provider for at least 24 hours after your discharge time. Follow any additional instructions given to you from your surgeon. Telephone instructions given to LANA DOMÍNGUEZ and asked if any additional questions and then verbalized understanding. Patient advised to call surgeon office or pre surgery nurse liaison [phone] if any additional questions.
[2021-08-01 09:49] VITALS: BMI 31.9
--- NOTE | 2021-08-01 09:51 | PC.NURSE ---
Minor changes were made in the computer since last interview.
--- NOTE | 2021-08-01 10:01 | PC.NURSE ---
Report to the Outpatient Waiting Room, entrance under the green pavilion located off [facility], at 0630 on 08-04-21. OR Time: 0730. - You and your visitor will be asked a series of questions to screen for COVID 19 for your protection. - A mask is required within the hospital. Preoperative COVID Testing Requirements: No COVID Test needed if: (proof is required; if not received patient will have Rapid Test prior to entry) - Patient has received COVID Vaccine at least 14 days prior to procedure date or - Patient has positive COVID test result within last 90 days of surgery date. COVID Test needed if above criteria is not met If not COVID vaccinated a COVID test must be conducted within 72 hours of surgery and patient is asked to isolate self from time of testing until procedure. You will go to the [facility] for your COVID testing. The [facility] site is located at the corner of [address] [facility]. You will only be called if COVID results are positive and your surgeon may reschedule your elective surgery date. 08-01-21 @ 0920 (patient went) Patients may have clear liquids (water, carbonated beverages, clear teas, apple juice) until 3 hours prior to surgery with a maximum of 20 ounces. - No food from midnight until time of surgery - Infants may have breast milk until 4 hours before surgery, infant formula 6 hours prior to surgery. - Children will be allowed to drink immediately following surgery. If applicable, please bring a bottle or sippy cup to assist with drinking. Juice, water, soda, and popsicles are readily available. For infants on formula, please bring formula the day of surgery. Pacifiers are allowed. Can have a light breakfast (LOCAL) Take the following medications with a SIP of water the morning of surgery: None Medications to discontinue per physician: N/A Date to take last dose: N/A Bring rescue inhaler DOS to hospital Please no make-up, nail mohawk, hairspray, perfume, deodorant, or body powder the day of surgery. No jewelry (including any body piercings) or valuables the day of surgery, leave them at home. Please take a shower or bath the night before, or the morning of, surgery with an antibacterial soap. Wear comfortable, loose fitting clothing. Children are encouraged to wear pajamas. - Jewelry must be removed prior to entering the operating room. Rings and piercings that are not removed may be cut off. - The hospital will not accept responsibility for valuables. - Please leave all valuables, including medications, at home the day of surgery. If you are going home after surgery, a licensed driver recruiter must drive you home. - NO public transportation without another adult. - We recommend that an adult stay with you for 24 hours following discharge. - We also recommend that you do not drive, make important decision, drink alcoholic beverages, or take any drugs that were not prescribed by your health care provider for at least 24 hours after your discharge time. For Pediatric surgeries, we recommend two adults accompany the child home (only one inside the building at this time). One visitor will be allowed to accompany the patient into the hospital. Patients visitor will be instructed to remain with patient at all times or leave the building. We will allow the visitor to come back to the postoperative area when patient is ready. Follow any additional instructions given to you from your surgeon. Telephone instructions given to Sheila Amado and asked if any additional questions and then verbalized understanding. Patient advised to call surgeon office or pre surgery nurse liaison [phone] if any additional questions.
--- NOTE | 2021-08-03 15:47 | PM.HPGS ---
History of Present Illness History of Present Illness Consent: Risks, benefits, and alternatives of removal of a Port-A-Cath have been discussed and questions answered. Patient agrees to proceed with procedure. Chief complaint: hx of breast cancer Narrative: Sheila Amado is a 40 year old Black female who recently returned to the office after having a sentinel lymph node biopsy times 2, needle localized right breast lumpectomy, excision of non sentinel lymph node x1 right axillary, and excision of superficial fat right axilla on 12/02/20. Patient has been following up with Dr Cortez, oncologist in [place] and reports doing well. Patient had her 6 month follow up diagnostic bilateral mammogram on 05/31/21 that showed probable postsurgical change upper central right breast. No evidence of malignancy in the left breast. BIRADS 3. Patient reports no changes since her last office visit in 04/2021. On her last visit Dr. Cortez approved removal of her port as they are not planning any further chemotherapy or other IV medication treatments. Review of Systems Constitutional: Constitutional: Reports no additional constitutional complaints, Reports fatigue and Denies malaise Eyes: Eyes: Denies change in vision and Denies loss of vision ENT: Reports Normal hearing present, Denies change in voice, Denies dizziness, Denies hoarseness and Denies sore throat Cardiovascular: Cardiovascular: Denies chest pain, Denies leg edema and Denies dyspnea Respiratory: Respiratory: Denies cough, Denies dyspnea and Denies wheezing Comments: history of asthma on an inhaler. Gastrointestinal: Gastrointestinal: Denies hematochezia, Denies change in bowel habits and Denies heartburn Genitourinary: Genitourinary: Denies urinary frequency and Denies urinary incontinence Integumentary/Breasts: Comments: Previous history of breast cancer. Neurologic: Reports Normal hearing present, Denies confusion, Denies dizziness, Denies loss of vision, Denies memory loss and Denies seizure-like activity Psychiatric: Psychiatric: Denies confusion, Denies depression and Denies memory loss Endocrine: Endocrine: Denies cold intolerance and Reports fatigue Comments: History non insulin-dependent diabetes mellitus on metformin Hematologic/Lymphatic: Hematologic/Lymphatic: Denies easy bleeding and Denies easy bruising Allergic/Immunologic: Allergic/Immunologic: Denies wheezing PMFSH Past Medical History Medical History Asthma (Unknown) BMI 33.0-33.9,adult Diabetes (Unknown) Invasive ductal carcinoma of right breast in female (~2020) Surgical History Surgical History History of Hx of breast biopsy NL right breast lumpectomy, excision non sentinel lymph, excision superficial fat right axilla, sentinel lymph node bx on 12/02/20 Family History Family History Father COPD (chronic obstructive pulmonary disease) Mother Asthma Diabetes mellitus Hypertension Sibling Asthma Grandparent Breast cancer Maternal grandmother and maternal great-grandmother Social History Social History Smoking status: Never smoker Alcohol intake: current Drinks per week: 1 Substance use: never Substance use type: does not use Living arrangements: alone Additional occupation/education comments: [employer] Gender identity (if verbalized by the patient): Female Spiritual care concerns: No Meds Home Medications and Allergies Home Medications Medication Instructions Recorded Confirmed Type albuterol sulfate 90 mcg/actuation 1 inh INHALATION Q4-6H PRN 04/27/20 08/04/21 History breath activated powder inhaler,sensor metformin 1,000 mg tablet 1,000 mg PO BID 04/27/20 08/04/21 History vit-iron fum-folic ac 1
[2021-08-04] VITALS (7 sets, daily range): BP systolic 112–122; BP diastolic 73–81; PULSE 66–80; RESP 16–18; TEMP 36.6; O2SAT 98–100
--- NOTE | 2021-08-04 08:16 | WPDHPUPDATE1 ---
History and Physical Update Update Date/Time: 08/04/21 08:16 History and Physical has been reviewed, including an updated exam of the patient. There are NO changes in the patient's condition. Risks, benefits, and alternatives have been discussed and questions answered. Patient agrees to proceed with procedure.
[2021-08-04] MEDS: BUPIVACAINE/EPINEPHRINE 0.25% 50 ML VIAL 20 ML INFILTRATE (08:50)
--- NOTE | 2021-08-04 09:33 | P.OP_ITS ---
Procedure Note - Detailed Date of Procedure 08/04/21 Pre-op Diagnosis 1. Indwelling Port-A-Cath 2. hx of Right breast cancer Post-op Diagnosis Same Procedure Performed Removal of Barb-cath Surgeon Ramana Walls MD Geoscience Laboratory Technician none Anesthesia Local (0.25% Marcaine with Epi) Indications Patient has had a Port-A-Cath in for chemotherapy in the past. Now no longer in use. Plan to remove under local anesthetic. Findings Normal appearing Bard low-profile port and catheter removed intact. Description of Procedure Prior to the procedure the patient was seen in the holding area and the area of proposed surgery was marked. All questions were answered and the patient wished to proceed with removal of the Port-A-Cath. The patient was brought to the operating room and placed supine. The entire left neck, chest, and shoulder were prepped with chlorhexidine. The area was draped off. Time-out was performed confirming patient and site of surgery. Following this a 15 blade knife was used to make incision directly on the scar from the previous port placement. This was done after infiltrating local anesthetic into the area of and inferior to the scar and into the area of the pocket containing the port to some degree using 1% xylocaine with epinephrine. Following this we carefully dissected down to the junction of the port and catheter. Bovie cautery with needle-tip was used to carefully incise the capsule around the port and free up the scar tissue around the junction of the port and catheter. Two Prolene sutures that were holding the port to the underlying fascia were carefully excised with a 15 blade knife and mosquito hemostats. Following this the port was brought up and out of the pocket. Then watching the patient's respirations I carefully removed the catheter in one smooth pull while applying pressure in the lower right neck area at the catheter exit site as the patient was breathing out. Pressure was held for 1 minute. I used Bovie cautery on some the subcutaneous tissues as we waited for good clotting. Again hemostasis was checked in the wound using Bovie cautery for superficial hemostasis in the subcutaneous tissues. Following this closure was obtained with 2 layers. I used buried subcutaneous sutures of 3-0 Vicryl in the subcutaneous layer followed by a running subcuticular closure of 4-0 Monocryl on the skin. Patient tolerated the procedure well. Estimated blood loss was 3 cc Sponge, needle, and instrument counts were correct at the end the procedure and patient was taken to the outpatient recovery area in good condition. Implants none Estimated Blood Loss 3 Drains No Packing No Pathology None sent Complications No immediate complications Condition Stable Disposition Same day
== END 2021-08-04 09:30 | disposition home or self-care (01) ==
PROVIDERS: PCP Obstetrics & Gynecology; Visit Provider Surgery
PROC: (CPT 36589; principal; 2021-08-04 09:00)
DX: Z45.2 Encounter for adjustment and management of vascular access device (principal); Z85.3 Personal history of malignant neoplasm of breast; Z92.21 Personal history of antineoplastic chemotherapy; J45.909 Unspecified asthma, uncomplicated; E11.9 Type 2 diabetes mellitus without complications; Z79.51 Long term (current) use of inhaled steroids; Z79.84 Long term (current) use of oral hypoglycemic drugs
CPT/HCPCS: 36590; C9803; U0003; U0005

== ENCOUNTER 2022-02-02 12:26 | Emergency (ER) | payer OTHER, MEDICAID, SELFPAY ==
[2022-02-02 12:27] VITALS: BP 167/109; PULSE 89; RESP 18; TEMP 36.8; O2SAT 99
--- NOTE | 2022-02-02 13:14 | ED.FEMALEGU ---
HPI - Female Genitourinary General Chief complaint: Urogenital-Female Stated complaint: abdominal pain x 2 weeks Time Seen by Provider: 02/02/22 12:48 History of Present Illness HPI Narrative: 41-year-old female presents to the emergency room today for exposure to chlamydia. She says that her boyfriend found out a few weeks ago that he was exposed to chlamydia and he was treated. They have been using condoms over the past few weeks until she could also get treated. She does not have any symptoms. Denies any abdominal pain or abnormal vaginal discharge. No dysuria or hematuria. No fever or chills. She does report occasional pain during intercourse. Related Data Home Medications Medication Instructions Recorded Confirmed albuterol sulfate 90 mcg/actuation 1 inh inhalation Q4-6H PRN 04/27/20 08/17/21 breath activated powder Shortness Of Breath inhaler,sensor (Proair Digihaler) metformin 1,000 mg tablet 1,000 mg PO BID 04/27/20 08/17/21 vit with calcium-iron 1 tablet PO DAILY 08/01/21 08/17/21 fum-folic acid 27 mg-1 mg tablet Allergies Allergy/AdvReac Type Severity Reaction Status Date / Time shellfish derived Allergy Severe Swelling Verified 08/17/21 13:39 of Lip/Tongue/Throat iodine Allergy Anaphylaxis Verified 08/17/21 13:39 Review of Systems Review of Systems: CONSTITUTIONAL: Denies fever, chills, or sweats. EYES: Denies visual changes, redness, or discharge. ENT: Denies rhinorrhea, congestion, sore throat, or otalgia. CARDIOVASCULAR: Denies chest pain, palpitations, or edema. RESPIRATORY: Denies cough or dyspnea. GASTROINTESTINAL: Denies abdominal pain, nausea, vomiting, or diarrhea. GENITOURINARY: Denies dysuria or hematuria. SKIN: Denies rash or itching. MUSCULOSKELETAL: Denies back pain, joint pain, or myalgia. NEUROLOGIC: Denies headache, numbness, dizziness, or weakness. PSYCHIATRIC: Denies anxiety or depression. [facility] Past Medical History Medical History Asthma (Unknown) BMI 33.0-33.9,adult Diabetes (Unknown) Invasive ductal carcinoma of right breast in female (~2020) Surgical History Surgical History History of History of removal of Port-a-Cath 08/04 Hx of breast biopsy NL right breast lumpectomy, excision non sentinel lymph, excision superficial fat right axilla, sentinel lymph node bx on 12/02/20 Family History Family History Father COPD (chronic obstructive pulmonary disease) Mother Asthma Diabetes mellitus Hypertension Sibling Asthma Grandparent Breast cancer Maternal grandmother and maternal great-grandmother Social History Social History Smoking status: Never smoker Alcohol intake: current Drinks per week: 1 Substance use: never Substance use type: does not use Additional occupation/education comments: [employer] Gender identity (if verbalized by the patient): Female Spiritual care concerns: No Exam Narrative: GENERAL: Well-appearing, well-nourished, and in no acute distress. HEAD: Normocephalic, atraumatic. NECK: Supple. No adenopathy or masses. No carotid bruits or JVD CHEST: Clear to auscultation. No respiratory distress. No wheezes rales or rhonchi HEART: Regular rate and rhythm. No murmur heard. Normal peripheral pulses. ABDOMEN: Soft, nontender, nondistended, normal active bowel sounds. EXTREMITIES: Normal range of motion. No edema. SKIN: Warm, dry, no rash. NEURO: No focal deficits. Alert and oriented x3. PSYCH: Normal mood and affect. Course Vital Signs Vital signs: Vital Signs Temperature 36.8 C 02/02/22 12:27 Pulse Rate 89 02/02/22 12:27 Respiratory Rate 18 02/02/22 12:27 Blood Pressure 167/109 H 02/02/22 12:27 Pulse Oximetry 99 02/02/22 12:27 Oxyg
[2022-02-02] MEDS: cefTRIAXone 1 GM VIAL 0.5 GM IM (13:25)
[2022-02-02] MEDS: AZITHROMYCIN 250 MG TABLET 1000 MG PO (13:25)
== END 2022-02-02 13:45 | disposition home or self-care (01) ==
PROVIDERS: Emergency Provider Nurse Practitioner Family; PCP Obstetrics & Gynecology
DX: Z20.2 Contact with and (suspected) exposure to infections with a predominantly sexual mode of transmission (principal); E11.9 Type 2 diabetes mellitus without complications; J45.909 Unspecified asthma, uncomplicated; Z85.3 Personal history of malignant neoplasm of breast; Z79.84 Long term (current) use of oral hypoglycemic drugs
CPT/HCPCS: 87491; 87591; 96372; 99284; A9270; J0696